=== PATIENT | female | born 1980 | race Caucasian/White ===

== ENCOUNTER 2020-09-13 09:53 | Outpatient (REF) | payer SELFPAY ==
[2020-09-13 20:15] LABS: COVID-19 RT-PCR UVMMC Result Negative (Negative)
== END 2020-09-13 10:13 ==
LOC: LBO 09:53
PROVIDERS: Visit Provider Nurse Practitioner Family
DX: Z11.59 Encounter for screening for other viral diseases (principal)
CPT/HCPCS: U0003

== ENCOUNTER 2023-01-29 15:49 | Outpatient (CLI) | payer OTHER, SELFPAY ==
[2023-01-29 10:34] LABS: HCT 39.8 % (36.0-46.0); HGB 12.9 g/dL (11.2-15.7); MCH 29.1 pg (27.0-33.0); MCHC 32.4 % (32.0-36.0); MCV 90 fL (80-95); MPV 9.5 fL (8.0-11.0); Platelet Count 394 10^3/uL (130-400); RBC 4.44 10^6/uL (3.93-5.22); RDW 14.4 % (11.7-14.6); RDW-SD 47.4 fL; WBC 7.33 10^3/uL (4.4-10.8)
[2023-01-29 10:58] LABS: TSH (W/Ref FT4) 1.69 uIU/mL (0.36-3.74)
== END 2023-01-29 15:50 | disposition home or self-care (01) ==
LOC: LBO 15:50
PROVIDERS: PCP Family Medicine; Visit Provider Nurse Practitioner Women's Health
DX: N93.8 Other specified abnormal uterine and vaginal bleeding (principal); N92.5 Other specified irregular menstruation
CPT/HCPCS: 36415; 85027; 84443

== ENCOUNTER 2023-03-02 14:19 | Outpatient (REF) | payer OTHER, SELFPAY ==
--- NOTE | 2023-03-02 12:45 | ENDOMET_PTH ---
PATIENT: Alba Christopher LOC: N U#:[id number] AGE/SX: 42/F ROOM: RE03/02/[address]: Lisa Sandoval DO : 1980 BED: DIS: 03/02/2023 SPEC #: [id number] RECD: 03/02/23 16:20 STATUS: MAE RE #: [id number] CHARLETTE: 03/02/23 12:[address]: Lisa Sandoval DEPT: Surgical Specimen RECD BY: Ursula Schwartz ENTERED: 03/02/23 16:20 SP TYPE: Endomet OTHR DR: Ta Coley Tissues: 1 - ENDOMETRIUM BX/JOSE Procedures: GROSS AND MICRO LEVEL 4 Comments: [id number]
== END 2023-03-02 14:20 | disposition home or self-care (01) ==
LOC: LBN 14:19
PROVIDERS: PCP Family Medicine; Visit Provider Obstetrics & Gynecology
DX: N93.8 Other specified abnormal uterine and vaginal bleeding (principal); N85.01 Benign endometrial hyperplasia
CPT/HCPCS: 88305

== ENCOUNTER 2023-03-21 16:51 | Outpatient (REF) | payer OTHER, SELFPAY ==
[2023-03-23 12:11] LABS: Chlamydia Result Negative (Negative); GC Result Negative (Negative)
== END 2023-03-21 16:52 | disposition home or self-care (01) ==
LOC: LBN 16:51
PROVIDERS: PCP Family Medicine; Visit Provider Obstetrics & Gynecology
DX: Z11.3 Encounter for screening for infections with a predominantly sexual mode of transmission (principal)
CPT/HCPCS: 87491; 87591

== ENCOUNTER 2025-03-26 08:07 | Outpatient (REF) | payer OTHER, SELFPAY | END 2025-03-26 08:08 | disposition home or self-care (01) | LOC: LBN 08:07 | PROVIDERS: PCP Family Medicine; Visit Provider Family Medicine | DX: R30.0 Dysuria (principal); R10.9 Unspecified abdominal pain | CPT/HCPCS: 87086 ==